=== PATIENT | male | born 1940 | race Caucasian/White ===

== ENCOUNTER 2017-02-23 11:05 | Emergency (ER) | payer OTHER ==
[~2017-02-23 11:05] MED LIST: ACAR50TA PO; DIAZ10TA PO; METF500 PO; OXYC5 PO; TAB-TAB PO; VITA400D PO
[2017-02-23 11:14] VITALS: PULSE 0
--- NOTE | 2017-02-23 11:16 | PD ---
HPI Chief Complaint: cardiac arrest Time Seen by Provider: 11:11 Travel History International Travel<30 days: No Contact w/Intl Traveler<30days: No History of Present Illness HPI This is a 76-year-old hospice patient, brought in after cardiac arrest. He was reportedly found unresponsive. Last seen normal at 1 AM. On EMS arrival they found him in asystolic cardiac arrest. They intubated the patient, multiple rounds of epinephrine, Narcan, bicarbonate, with no change in rhythm. Family wanted the patient to be transported. History Past Medical History Narrative Medical Diabetes BPH Chronic back pains Reportedly on hospice for generalized debility Social History Alcohol Use: No Tobacco Use: No Allergies-Medications (Allergen,Severity, Reaction): Coded Allergies: No Known Allergies (Verified , 10/14/14) Reported Meds & Prescriptions Reported Meds & Active Scripts Active Reported Acarbose 50 Mg Tab PO DAILY Diazepam 10 mg (Diazepam) 10 Mg Tab 1 Tab PO HS PRN Multivitamin (Multivitamins) 1 Tab Tab 1 Tab PO DAILY Vitamin D (Cholecalciferol) 400 Unit Gianluca 0 PO DAILY UNKNOWN DOSE Oxycodone (Oxycodone HCl) 5 Mg Cap 2.5 Mg PO BID PRN Glucophage 500 mg (Metformin HCl) 500 Mg Tab 1,000 Mg PO BIDPC Review of Systems ROS Limitations: Clinical Condition Physical Exam Narrative GENERAL: Elderly 76-year-old male, full cardiac arrest SKIN: Skin is warm, little bit clammy. HEAD: Atraumatic. Normocephalic. EYES: Pupils fixed and dilated. NECK: Trachea midline. No JVD. CARDIOVASCULAR: No pulses. RESPIRATORY: No spontaneous restaurant effort. Coarse breath sounds bilaterally. Bilateral breath sounds with bagging. GASTROINTESTINAL: Abdomen is flat and soft. MUSCULOSKELETAL: No obvious deformities. No lividity or rigor mortis. NEUROLOGICAL: Obtunded. No response to any stimuli. MDM Medical Decision Making Medical Screen Exam Complete: Yes Emergency Medical Condition: Yes Differential Diagnosis Cardiac arrest, ACS, arrhythmia, malignancy, overdose, other Narrative Course Medical decision making 76-year-old man, on hospice, with a systolic cardiac arrest. EMS coded patient for 30+ minutes. Patient remained in asystolic cardiac arrest on arrival. Pronounced on arrival. Time of 1108. Diagnosis Primary Impression: Cardiac arrest Disposition: 20 Kai Solano MD Feb 23, 2017 11:15
== END 2017-02-23 11:39 | disposition expired ==
LOC: NEPE 11:05
DX: I46.9 Cardiac arrest, cause unspecified (principal)
CPT/HCPCS: 99283